=== PATIENT | male | born 1980 | race Caucasian/White ===

== ENCOUNTER 2023-11-12 11:35 | Emergency (ER) | payer OTHER ==
[~2023-11-12] VITALS: Ht 172.7 cm; Wt 98.2 kg
[2023-11-12 11:40] VITALS: BP 168/61; PULSE 88; RESP 16; TEMP 98; O2SAT 96
== END 2023-11-12 14:44 | disposition home or self-care (01) ==
LOC: ER 11:36
DX: Z00.8 Encounter for other general examination (principal)
CPT/HCPCS: 99281